=== PATIENT | male | born 1955 | race Caucasian/White ===

== ENCOUNTER 2018-05-05 17:42 | Emergency (ER) | payer OTHER ==
[2018-05-05 18:43] VITALS: BP 128/64
--- NOTE | 2018-05-05 18:49 | ED ---
Lower Extremity - HPI Summary HPI Summary: Patient is a 62-year-old male presenting to the ED with a right great toe injury which occurred approximately 1 week ago. He states he was asymptomatic until approximately 2 days ago when the area which had an abrasion to the dorsum of the toe began to feel warm and became red and swollen. The swelling continued to spread throughout the dorsum of the foot yesterday. Endorses pain with palpation, but denies pain at rest. 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 Denies smoking history or recent travel. Patient states he is otherwise healthy and takes no medications. He is unsure if he fractured the toe during the accident, but is not wanting any x-rays. - History of Current Complaint Chief Complaint: EDExtremityLower Stated Complaint: LT FOOT SWELLING Time Seen by Provider: 05/05/18 17:56 Hx Obtained From: Patient Mechanism Of Injury: Other - abrasion x 2 weeks ago Onset of Pain: Immediate Onset/Duration: Weeks Severity Initially: Mild Severity Currently: Mild Pain Intensity: 0 Pain Scale Used: 0-10 Numeric Timing: Constant Location: Is Discrete @ - dorsum of the L great toe and dorsum of the foot with erythema and swelling Associated Signs And Symptoms: Positive: Negative, Redness Aggravating Factor(s): Standing, Ambulation Alleviating Factor(s): Rest Able to Bear Weight: Yes - Risk Factors Gout Risk Factors: Age Over 40, Male - no hx of gout DVT Risk Factors: Negative Septic Arthritis Risk Factor: Negative - Allergies/Home Medications Allergies/Adverse Reactions: Allergies Allergy/AdvReac Type Severity Reaction Status Date / Time No Known Allergies Allergy Unknown Verified 05/05/18 17:49 Reaction Details PMH/Surg Hx/FS Hx/Imm Hx Previously Healthy: Yes - Immunization History Hx Pertussis Vaccination: No Immunizations Up to Date: Unable to Obtain/Confirm Infectious Disease History: No Infectious Disease History: Denies: Traveled Outside the [place] in Last 30 Days - Social History Occupation: Employed Full-time Lives: Alone Alcohol Use: Rare Hx Substance Use: No Substance Use Type: Reports: None Hx Tobacco Use: No Smoking Status (MU): Never Smoked Tobacco Review of Systems Constitutional: Negative Negative: Fever, Chills, Fatigue, Skin Diaphoresis Negative: Palpitations, Chest Pain Negative: Shortness Of Breath, Cough Genitourinary: Negative Positive: no symptoms reported, see HPI Negative: Arthralgia, Myalgia Positive: Other - dorsum of the L great toe and dorsum of the foot with erythema and swelling Neurological: Negative Psychological: Normal All Other Systems Reviewed And Are Negative: Yes Physical Exam Triage Information Reviewed: Yes Vital Signs On Initial Exam: Initial Vitals Temp Pulse Resp BP Pulse Ox 99.4 F 86 14 124/70 94 05/05/18 17:44 05/05/18 17:44 05/05/18 17:44 05/05/18 17:44 05/05/18 17:44 Vital Signs Reviewed: Yes Appearance: Positive: Well-Appearing, Well-Nourished Skin: Positive: Warm, Skin Color Reflects Adequate Perfusion Head/Face: Positive: Normal Head/Face Inspection Eyes: Positive: EOMI, GABBIE, Conjunctiva Clear Neck: Positive: Supple, No Lymphadenopathy Respiratory/Lung Sounds: Positive: Clear to Auscultation, Breath Sounds Present Cardiovascular: Positive: RRR, Pulses are Symmetrical in both Upper and Lower Extremities Musculoskeletal: Positive: Normal, Strength/ROM Intact, Other - Dorsiflexion and plantar flexion with mild discomfort Neurological: Positive: Speech Normal Psychiatric: Positive: Normal, Affect/Mood Appropriate Diagnostics - Vital Signs Vital Signs Temp Pulse Resp BP Pulse Ox 05/05/18 18:42 98.2 F 78 18 128/64 99 05/05/18 17:44 99.4 F 86 14 124/70 94 - Laboratory Lab Statement: Any lab studies that have been ordered have been reviewed, and results considered in the medical decision making process. Lower Extremity Course/Dx - Course Course Of Treatment: On physical examination, the dorsum of the L toe is warm, edema and swelling to the dorsum of the toe. There is slight swelling to the foot as well. Symptoms have been present for over 1 week. He denies any worsening of symptoms over the past few days. Denies any fevers, sweats, chills. He remains ambulatory. Dorsiflexion and plantar flexion with only slight amount of pain. Believe he has a superficial cellulitis to the toe and dorsum of the foot. Patient does not have a history of gout and is otherwise having low risk factors. Pain is currently a 2 /10 not consistent with acute gout flare. The cellulitis is not circumferential and does not extend to the ankle joint. He understands return precautions and is okay with this plan at discharge. Keflex prescribed. - Diagnoses Differential Diagnosis/HQI/PQRI: Positive: Gout, Infection, Strain, Tendonitis Provider Diagnoses: Cellulitis Discharge - Sign-Out/Discharge Documenting (check all that apply): Discharge/Admit/Transfer - Discharge Plan Condition: Stable Disposition: HOME Prescriptions: Cephalexin CAP* [Keflex CAP*] 500 mg PO QID #28 cap MDD 4 Patient Education Materials: Cellulitis (ED) Referrals: No Primary Care Phys,NOPCP [Primary Care Provider] - Additional Instructions: Ibuprofen 600mg three times daily x 3 days Ice to the area Keflex 500mg four times daily x 7 days Magnesium glycinate 400mg at bedtime for muscle aches Drink plenty of fluids including gatorade if you feel dehydrated. - Billing Disposition and Condition Condition: STABLE Disposition: Home
== END 2018-05-05 18:42 | disposition home or self-care (01) ==
LOC: ED 17:42
DX: L03.90 Cellulitis, unspecified (principal); R60.0 Localized edema
CPT/HCPCS: 99282

== ENCOUNTER 2019-03-20 20:20 | Emergency (ER) | payer OTHER ==
--- NOTE | 2019-03-20 21:38 | ED ---
Throat Pain/Nasal Congestion - HPI Summary HPI Summary: The patient is a 63 y/o M presenting to [facility] with a chief complaint of pain where he had a tooth extracted today. He is fearful for infection in the area because last time he got a tooth taken out, he had to go through three courses of abx over four months to resolve the infection. He denies fever. His dentist did not give him abx after the extraction today. - History of Current Complaint Chief Complaint: EDDentalPain Time Seen by Provider: 03/20/19 21:31 Hx Obtained From: Patient Onset/Duration: Lasting Hours, Still Present Severity: Mild - Allergies/Home Medications Allergies/Adverse Reactions: Allergies Allergy/AdvReac Type Severity Reaction Status Date / Time No Known Allergies Allergy Unknown Verified 05/05/18 17:49 Reaction Details PMH/Surg Hx/FS Hx/Imm Hx Endocrine/Hematology History: Denies: Hx Diabetes Cardiovascular History: Denies: Hx Hypercholesterolemia Sensory History: Denies: Hx Deafness Opthamlomology History: Denies: Hx Legally Blind EENT History: Denies: Hx Deafness - Surgical History Surgery Procedure, Year, and Place: tooth extraction 2018 Infectious Disease History: No Infectious Disease History: Denies: Traveled Outside the [place] in Last 30 Days - Family History Known Family History: Negative: Blood Disorder - Social History Alcohol Use: Rare Hx Substance Use: No Substance Use Type: Reports: None Hx Tobacco Use: No Smoking Status (MU): Never Smoked Tobacco Do You Chew or Dip Tobacco: No Have You Chewed or Dipped Tobacco in the LAST YEAR: No Review of Systems Negative: Fever Positive: Dental Pain - tooth taken out All Other Systems Reviewed And Are Negative: Yes Physical Exam - Summary Physical Exam Summary: VITAL SIGNS: Reviewed. GENERAL: Patient is a well-developed and nourished male who is lying comfortable in the stretcher. Patient is not in any acute respiratory distress. HEAD AND FACE: No signs of trauma. No ecchymosis, hematomas or skull depressions. No sinus tenderness. EYES: PERRLA, EOMI x 2, No injected conjunctiva, no nystagmus. EARS: Hearing grossly intact. Ear canals and tympanic membranes are within normal limits. MOUTH: Oropharynx within normal limits. Extraction of tooth number 12, no signs of swelling, erythema, or abscess NECK: Supple, trachea is midline, no adenopathy, no JVD, no carotid bruit, no c- spine tenderness, neck with full ROM. CHEST: Symmetric, no tenderness at palpation LUNGS: Clear to auscultation bilaterally. No wheezing or crackles. CVS: Regular rate and rhythm, S1 and S2 present, no murmurs or gallops appreciated. ABDOMEN: Soft, non-tender. No signs of distention. No rebound no guarding, and no masses palpated. Bowel sounds are normal. EXTREMITIES: FROM in all major joints, no edema, no cyanosis or clubbing. NEURO: Alert and oriented x 3. No acute neurological deficits. Speech is normal and follows commands. SKIN: Dry and warm Triage Information Reviewed: Yes Vital Signs On Initial Exam: Initial Vitals Temp Pulse Resp BP Pulse Ox 98.2 F 91 16 130/83 95 03/20/19 20:28 03/20/19 20:28 03/20/19 20:28 03/20/19 20:28 03/20/19 20:28 Vital Signs Reviewed: Yes Diagnostics - Vital Signs Vital Signs Temp Pulse Resp BP Pulse Ox 03/20/19 20:28 98.2 F 91 16 130/83 95 - Laboratory Lab Statement: Any lab studies that have been ordered have been reviewed, and results considered in the medical decision making process. EENT Course/Dx - Course Assessment/Plan: Patient is here requesting antibiotics for dental infection. The patient reports that he had a dental extraction today with a dentist however , he did not give him any antibiotics. He reports that the last time he had the same problem the patient developed an infection and took approximately 3 doses of antibiotics to resolve the infection. In the physical exam doesnt show any type of infection however because of his history a give the patient amoxicillin. He was instructed to take this antibiotic only if the patient develops any swelling, increase in pain, fevers or any discharge. The patient understands and agrees. Patient is hemodynamically stable alert and oriented 3. - Diagnoses Provider Diagnoses: Pain, dental, Status post tooth extraction Discharge - Sign-Out/Discharge Documenting (check all that apply): Patient Departure - Patient will be discharged home. Patient Received Moderate/Deep Sedation with Procedure: No - Discharge Plan Condition: Stable Disposition: HOME Prescriptions: Amoxicillin PO (*) [Amoxicillin 500 MG CAP*] 500 mg PO TID #30 cap Patient Education Materials: Tooth Extraction (DC) Referrals: [facility] [Outside] - 3 Days Additional Instructions: Please take medication only if pain worsens or if there is swelling near the extraction site. FOLLOW UP WITH YOUR DENTIST WITHIN ONE WEEK. RETURN TO THE ED FOR ANY WORSENING OR NEW SYMPTOMS. - Billing Disposition and Condition Condition: STABLE Disposition: Home - Attestation Statements Document Initiated by Bertrand: Yes Documenting Scribe: Lena Flanagan Provider For Whom Bertrand is Documenting (Include Credential): Dr. Ej Flores MD Scribe Attestation: Lena Nash scrradhaed for Dr. Ej Flores MD on 03/21/19 at 2137. Scribe Documentation Reviewed: Yes Provider Attestation: The documentation as recorded by the Lena khanna accurately reflects the service I personally performed and the decisions made by me, Dr. Ej Flores MD Status of Scribe Document: Viewed
[2019-03-20 21:56] VITALS: BP 127/74
== END 2019-03-20 21:55 | disposition home or self-care (01) ==
LOC: ED 20:20
DX: K08.89 Other specified disorders of teeth and supporting structures (principal); K08.409 Partial loss of teeth, unspecified cause, unspecified class
CPT/HCPCS: 99281